=== PATIENT | male | born 1960 | race Caucasian/White ===

== ENCOUNTER → 2018-03-02 18:01 | Outpatient (CLI) | payer OTHER, SELFPAY ==
--- NOTE | 2018-03-02 18:11 | DI.MRI.S_ITS ---
PROCEDURE: MR HAND LT WO CON INDICATIONS: LEFT RING FINGER DEFORMITY TECHNIQUE: Noncontrast coronal T1 spin echo and T2 fast spin echo with fat saturation, axial proton density fast spin echo and T2 fast spin echo with fat saturation, sagittal T1 spin echo and STIR through the hand and fingers. COMPARISON: None. FINDINGS: Image quality: Excellent. Bones: There is slight flexion at the fourth PIP joint. Mild osteoarthritic changes are noted involving the fourth PIP and DIP joints with joint space narrowing and small marginal osteophyte formation. No marrow contusions or fractures. No intra-osseous lesions. Interphalangeal joint(s): The accessory and proper collateral ligaments appear intact. The volar plate demonstrates normal morphology. The extensor central slips appear intact on sagittal images. Metacarpophalangeal joint(s): The accessory and proper collateral ligaments appear intact, as well as the volar plate and adjacent deep transverse metacarpal ligaments. The sagittal bands of the extensor dixon appear normal. Extensor apparatus: The central slips insert normally on the middle phalangeal base. The conjoint and terminal tendons insert normally on the distal phalangeal bases. More proximal portions of the extensor tendons also appear normal. Flexor apparatus: The flexor digitorum superficialis and profundus tendons both appear intact. There is disruption of A2 and possibly A4 pulleys of the fourth digit with increased distance between the flexor tendons and fourth proximal and middle phalanges and surrounding soft tissue edema. Rest of annular and cruciform pulleys appear intact. Soft tissues: Visualized muscles demonstrate normal bulk and internal signal. No intramuscular masses identified. No ganglion cysts. IMPRESSION: 1. Rupture of A2 and possibly A4 pulleys of the fourth digit with surrounding soft tissue edema and fluid deep to the flexor tendon. Increased distance between the flexor tendon of fourth digit and fourth proximal and middle phalanges. No evidence of fourth digit flexor or extensor tendon rupture. 2. No marrow edema. No fracture or dislocation. 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 Dictated by: Wenceslao Mcdowell M.D. on 03/03/2018 at 9:50 Approved by: Wenceslao Mcdowell M.D. on 03/03/2018 at 10:32
== END ==
PROVIDERS: Visit Provider Physician Assistant
DX: S66.195A Other injury of flexor muscle, fascia and tendon of left ring finger at wrist and hand level, initial encounter (principal); M19.042 Primary osteoarthritis, left hand; M20.002 Unspecified deformity of left finger(s); R60.9 Edema, unspecified
CPT/HCPCS: 73218

== ENCOUNTER 2018-12-03 06:35 | Day surgery (SDC) | payer OTHER, SELFPAY ==
[2018-12-03 07:13] VITALS: BP 135/75; PULSE 63; RESP 17; TEMP 36.3; O2SAT 97; BMI 25.7
[2018-12-03] MEDS: SODIUM CHLORIDE 0.9% 1,000 ML 100 ML IV (07:30)
--- NOTE | 2018-12-03 08:37 | PM.HP.1 ---
History of Present Illness Date Patient Seen: 12/03/18 Time Patient Seen: 08:38 Chief complaint: [id number] Narrative: Patient here for screening colonoscopy had a previous scope at 10 years ago with no polyps found he is asymptomatic no melena no hematochezia Patient History Medical History Former smoker (Acute) Impaired vision (Acute) Social History household members: spouse Family & Social History Social History: household members spouse Meds Home Medications Medication Instructions Recorded Confirmed Type No Known Home Medications 12/03/18 12/03/18 History Allergies Allergy/AdvReac Type Severity Reaction Status Date / Time No Known Drug Allergies Allergy Verified 12/03/18 07:11 Review of Systems Review of Systems All systems reviewed & are unremarkable except as noted in HPI and below Exam Vital Signs (past 8 hours): - 12/03/18 07:13 Temperature 97.3 F L Pulse Rate 63 Respiratory Rate 17 Blood Pressure 135/75 Pulse Oximetry 97 Oxygen Delivery Method Room Air Narrative Exam Narrative: Patient is alert and oriented vital signs are stable Lungs are clear with no rales or wheezes Heart regular rhythm no murmur Abdomen no organomegaly no tenderness Rectal to be done at colonoscopy Assessment & Plan Assessment & Plan narrative: Asymptomatic patient here for screening colonoscopy has no history of prior polyps. Understands procedure and has no questions.
[2018-12-03] MEDS: MIDAZOLAM 5 MG/5 ML VIAL IV (08:56)
[2018-12-03] MEDS: fentaNYL 250 MCG/5 ML INJ IV (08:56)
--- NOTE | 2018-12-03 08:58 | PM.OP.ENDO ---
Operative Date/Time/Diagnoses Date of procedure: 12/03/18 Time of procedure: 08:58 Pre-op diagnosis: Screening colonoscopy Post-op diagnosis: same Procedure & Clinicians Study performed: Total colonoscopy to the cecum finding significant sigmoid diverticulosis no diverticulitis possible irregularity at 40 cm that I could not biopsy this may have been a suction abnormality that I could not get beyond a fold in the colon to biopsy it was a flat 5 mm irregularity Same procedure as scheduled: Yes Surgeon: Jake Hollingsworth Procedure Notes SCOAP/Timeout: This was done Procedure in detail: Patient was properly identified during surgical pause flexible fiberoptic colonoscope inserted transanally to the cecum patient has rather significant sigmoid diverticulosis no diverticulitis at 40 cm behind a fold in the mucosa there was a 5 mm area of irregularity but I could not get the biopsy forceps to it and therefore could not biopsy it this just may have been scope trauma or suction irregularity. No true polyps tumors or ulcerations were seen throughout the colon procedure was well tolerated Scope withdrawal time: 10 Sedation minutes: 18 Findings: diverticulosis Impression: Sigmoid diverticulosis possible 5 mm irregularity at 40 cm could not biopsy it Recommendations: Colonscopy in 3 years Disposition: PACU
[2018-12-03 09:02] VITALS: BP 123/78; PULSE 71; RESP 7; TEMP 36.3; O2SAT 92
[2018-12-03 09:07] VITALS: BP 128/78; PULSE 74; RESP 13; O2SAT 99
[2018-12-03 09:12] VITALS: BP 117/82; PULSE 84; RESP 10; O2SAT 96
[2018-12-03 09:20] VITALS: BP 112/73; PULSE 78; RESP 11; TEMP 36.8; O2SAT 98
[2018-12-03 09:30] VITALS: BP 116/63; PULSE 69; RESP 20; TEMP 36; O2SAT 97
== END 2018-12-03 09:38 | disposition home or self-care (01) ==
PROVIDERS: PCP Internal Medicine; Visit Provider Surgery
PROC: 0DJD8ZZ Inspection of Lower Intestinal Tract, Via Natural or Artificial Opening Endoscopic (ICD-10-PCS; CPT 45378; principal; 2018-12-03 07:45)
DX: Z12.11 Encounter for screening for malignant neoplasm of colon (principal); K57.30 Diverticulosis of large intestine without perforation or abscess without bleeding; Z87.891 Personal history of nicotine dependence
CPT/HCPCS: G0121; 99152; J2250; J3010

== ENCOUNTER → 2019-02-14 19:33 | Outpatient (CLI) | payer OTHER, SELFPAY ==
--- NOTE | 2019-02-14 | DI.MRI.S_ITS ---
PROCEDURE: MR SHOULDER RT WO CON INDICATIONS: Pain in right shoulder TECHNIQUE: Noncontrast oblique coronal T2 fast spin echo with fat saturation, oblique sagittal T1 spin echo and T2 fast spin echo with fat saturation, axial T1 spin echo and T2 fast spin echo with fat saturation through the shoulder. COMPARISON: None. FINDINGS: Image quality: Excellent. Rotator cuff: There is tendinosis and low-grade articular and bursal surface partial-thickness tear involving distal supraspinatus and infraspinatus extending to the musculotendinous junction. Distal subscapularis tendinosis and low-grade intrasubstance partial-thickness tear is also seen. Sagittal images demonstrate no significant muscle atrophy. Bones and bursae: No bone marrow contusions or fractures. Mild to moderate acromioclavicular joint and glenohumeral joint osteoarthritis is seen with downward osteophyte formation in the acromioclavicular joint depressing on musculotendinous junction of supraspinatus.. No pathologic subacromial-subdeltoid or subcoracoid bursal fluid is present. Capsule and soft tissues: In the absence of intra-articular contrast, there is signal abnormality and contour irregularity involving superior anterior labrum at 12 to 2:00 position suggestive of superior anterior labral tear. The glenohumeral ligaments appear intact. The long head of the biceps tendon demonstrates normal location and morphology. The rotator interval appears normal, without fibrosis. The coracohumeral ligament is normal in thickness. IMPRESSION: 1. Tendinosis and low-grade articular and bursal surface partial-thickness tear involving distal supraspinatus and infraspinatus extending to musculotendinous junction. Distal subscapularis tendinosis and low-grade intrasubstance partial thickness tear. 2. Mild to moderate acromioclavicular joint and glenohumeral joint osteoarthritis. 3. Suggestion of superior anterior labral tear at 12 to 2:00 position. Dictated by: Wenceslao Mcdowell M.D. on 02/15/2019 at 10:00 Approved by: Wenceslao Mcdowell M.D. on 02/15/2019 at 10:06
== END ==
PROVIDERS: PCP Internal Medicine; Visit Provider Orthopaedic Surgery
DX: M25.511 Pain in right shoulder (principal); M75.111 Incomplete rotator cuff tear or rupture of right shoulder, not specified as traumatic; M19.011 Primary osteoarthritis, right shoulder
CPT/HCPCS: 73221

== ENCOUNTER 2019-03-14 10:37 | Day surgery (SDC) | payer OTHER, SELFPAY ==
[2019-03-09 14:30] VITALS: BMI 27.6
[2019-03-14] VITALS (9 sets, daily range): BP systolic 107–144; BP diastolic 64–88; PULSE 59–78; RESP 9–15; TEMP 36.1–36.9; O2SAT 91–99; BMI 26.0
[2019-03-14] MEDS: LACTATED RINGERS 1,000 ML 42 ML IV ×2 (12:00→14:43)
--- NOTE | 2019-03-14 12:39 | PM.PREOP ---
Pre-operative Note Interval Note History & Physical reviewed/Exam performed by Physician: Yes Changes to H&P: No
--- NOTE | 2019-03-14 13:00 | PM.PREOP ---
Pre-operative Note Interval Note History & Physical reviewed/Exam performed by Physician: Yes Changes to H&P: No
[2019-03-14] MEDS: fentaNYL 100 MCG/2 ML INJ 50 MCG IV (13:42)
[2019-03-14] MEDS: MIDAZOLAM 2 MG/2 ML VIAL IV (13:42)
--- NOTE | 2019-03-14 13:58 | SUR.PREOP ---
Block start time [1342] . Monitoring initiated and maintained throughout procedure. Oxygen and medications given per anesthesiologist instructions. Patient remained stable throughout procedure, no adverse reactions noted. Block end time [1346].
[2019-03-14] MEDS: CEFAZOLIN 2 GM/100 ML FROZ.PIGGY IV (14:10)
--- NOTE | 2019-03-14 14:31 | SUR.OPER ---
Beach chair with Kalinan/Isiah shoulder positioner. Lower body on padded OR bed. Head in foam padded head cradle, secured with straps. Left non-operative arm secured <90 degrees abduction, right arm under control of surgeon. Pillow under knees. Safety belt at thigh. Cloth tape over blanket over lower legs.
[2019-03-14] MEDS: BUPIVACAINE 0.5% W/ EPI (PF) VIAL 30 ML INJ (14:39)
[2019-03-14] MEDS: EPINEPHrine 1 MG/ML AMPUL 2 MG IRR (14:40)
--- NOTE | 2019-03-14 15:18 | P.OP_ITS ---
Operative Date/Time/Diagnoses Date of procedure: 03/14/19 Time of procedure: 14:00 Pre-op diagnosis: Right shoulder impingement and partial rotator cuff tear Post-op diagnosis: same Procedure & Clinicians Procedure: Right shoulder arthroscopic extensive debridement with distal clavicle excision and subacromial decompression Same procedure as scheduled: Yes Indications: Patient with signs subacromial impingement as well as partial tearing to the rotator cuff. Patient was unresponsive to conservative measures. Surgeon: Keyshawn aBrlow Automation Application Engineer: Cara Mckeon Anesthesia Type: General and Peripheral nerve block Operative Notes Findings: Very mild bursal sided partial tearing to the supraspinatus. Less than 25%. No sign of any articular sided partial tears. No sign of any proximal biceps tearing or synovitis. Degenerative fraying to the labrum both anterior superior as well as posteriorly. 2-1/2 mm by 2-1/2 mm area of complete cartilage loss on the humeral head. The surrounding cartilage looked relatively free of any significant wear tear. Glenoid had no sign of any full-thickness cartilage loss. Significant bursitis and synovitis in the subacromial and subdeltoid space. Arthritic changes to the AC joint with inferior osteophytes coming off the distal clavicle. Impingement lesion in the acromial arch. No sign of any loose bodies in the glenohumeral joint. No sign of any significant slap tear or Bankart tear Closure Type: primary Specimen(s): none sent Estimated Blood Loss (mL): 0 Blood products transfused: none Procedure in detail: On date of service, Patient was met in the holding area. The operative site was signed and witnessed by the OR staff. The surgeries once again discussed with the patient and any remaining questions they had were answered fully. Patient was taken back to the operating theater and placed on the operating table in a supine position. Great care was taken to ensure that all bony prominences were properly padded. Patient was then placed into the beach chair position. The head and neck were properly positioned and secured. A timeout was performed verifying patient's name, procedure, and the operative site. The upper extremity was then prepped and draped in the normal sterile fashion. Previously, the bony anatomy and portal sites were marked out as well as injected with Marcaine with epinephrine. An 11 blade was used to make an incision in the posterior aspect of the shoulder. The camera was placed, and a diagnostic shoulder scope was performed. Findings listed above. Next under direct visualization, a anterior portal was made. Shaver was brought in in a extensive debridement of the glenohumeral joint was performed. Shaver was used to debride the degenerative changes to the anterior, superior as well as posterior aspects of the labrum. Patient had a area of full-thickness cartilage loss. This was debrided as well. Shaver was also used to debride the very edges of the cartilage that had already started to pulled away from the bone about ready to be come loose bodies. Once we had extensively debrided the glenohumeral joint we turned our attention to the subacromial space. Next the camera was placed into the subacromial space. A lateral portal was obtained under direct visualization. A combination of the shaver and vapor wand, a debridement of the inflamed tissue as well as inflamed bursa was performed. The lateral gutter was also cleaned out. This gave us good visualization of the bursal aspect of the rotator cuff as well as the acromial arch. There was an obvious impingement lesion in the acromial arch. Next we turned our attention to the subacromial decompression. Next, a mechanical rasp was then used to do a subacromial decompression. This allowed us to convert the acromion to a type I acromial. This also allowed us to shave down the bony lesion in the acromial space. The rasp was placed into the lateral portal as well as the anterior portal in order to do a complete subacromial decompression. We next turned our attention to the distal clavicle. Using the shaver in the vapor wand we were able to clean out all the soft tissue around the distal clavicle as well as into the a.c. joint. This gave us good visualization of the arthritic changes to the distal clavicle as well as good of the a.c. joint allowing us to assess our distal clavicle excision. Of the inferior osteophytes coming off the distal clavicle. Using the mechanical rasp in the anterior portal, we were able to remove the inferior osteophytes as well as do a distal clavicle excision. The camera was then placed into the anterior portal which gave us a direct visualization of the a.c. joint allowing us to assess the distal clavicle excision. We then turned our attention to the rotator cuff tear. There was mild signs of bursal sided tears. The shoulder was then taken through range of motion and there was no sign of any additional impingement. Patient's shoulder was then cleaned dried and dressed and patient was taken to the PACU in stable condition. Complications: none Post-operative Condition: stable Disposition: PACU Plan for aftercare: Sling will be for comfort. No restrictions to range of motion. The
--- NOTE | 2019-03-14 16:48 | PM.PNPO.1 ---
Subjective Subjective Date Patient Seen: 03/14/19 Time Patient Seen: 16:49 Interval history: Pt is s/p a shoulder arthroscopy. He is doing well and meets discharge criteria except for O2 sats in the low 90's without supplemental O2. He has not had any further narcotic in the PACU. Only 150 ug fentanyl intraop. The bulk of his pain control is from an interscalene block. He has no dyspnea. He is awake and talking. I do not suspect a Pnuemothorax. I believe he can be safely discharged home. Exam Vital Signs (past 8 hours): - 03/14/19 11:21 03/14/19 15:24 03/14/19 15:30 Temperature 98.4 F 98.0 F Pulse Rate 74 78 71 Respiratory Rate 15 14 12 Blood Pressure 144/88 H 119/85 136/81 Pulse Oximetry 99 92 91 03/14/19 15:37 03/14/19 15:49 03/14/19 15:55 Temperature Pulse Rate 71 68 Respiratory Rate 10 L 15 12 Blood Pressure 129/83 121/81 Pulse Oximetry 92 96 96 03/14/19 15:59 03/14/19 16:08 03/14/19 16:30 Temperature 97.0 F L Pulse Rate 59 L 70 65 Respiratory Rate 9 L 12 13 Blood Pressure 122/83 116/74 107/64 Pulse Oximetry 96 93 94 Oxygen Delivery Method Nasal Cannula Oxygen Flow Rate 3 Assessment & Plan Post-op Postoperative Procedures: Procedures Operation Date: 03/14/19 12:45 Actual Procedures Side Surgeon p Arthroscopic subacromial decompression w/ rotator cuff debridement Right Keyshawn Barlow MD
--- NOTE | 2019-03-14 16:58 | SUR.PHASEII ---
New orders received and written, ok to d/c pt to home with sats [id number]. Pt verbalizes no SOB. All other VS stable. Pt walked from bedside to [facility] w/o issue. D/C to ED entrance by Kylah via [facility]
== END 2019-03-14 16:57 | disposition home or self-care (01) ==
PROVIDERS: PCP Internal Medicine; Visit Provider Orthopaedic Surgery
PROC: (CPT 29827; principal; 2019-03-14 12:45)
DX: M75.41 Impingement syndrome of right shoulder (principal); M19.011 Primary osteoarthritis, right shoulder; G89.18 Other acute postprocedural pain; S46.011A Strain of muscle(s) and tendon(s) of the rotator cuff of right shoulder, initial encounter; V49.60XA Unspecified car occupant injured in collision with unspecified motor vehicles in traffic accident, initial encounter
CPT/HCPCS: 29823; 29826; 29824; 64415; J0171; J0690; J1100; J2250; J2405; J2704; J3010

== ENCOUNTER → 2020-05-11 15:36 | Outpatient (CLI) | payer OTHER, SELFPAY ==
--- NOTE | 2020-05-11 | DI.MRI.S_ITS ---
PROCEDURE: MR LUMBAR SPINE WO CON INDICATIONS: Radiculopathy, lumbar region TECHNIQUE: Noncontrast sagittal T1 spin echo and T2 fast echo, sagittal STIR, axial T1 and T2 fast spin echo through the lumbar spine. In cases with scoliosis, additional coronal T2 fast spin echo may be performed. COMPARISON: [facility], MR, MR LUMBAR SPINE WITHOUT CONTRAST, 05/12/2017, 18:13. [facility], CR, XR LUMBAR SPINE 2 OR 3 VIEWS, 06/29/2019, 15:47. FINDINGS: Image quality: Excellent. Alignment and Curvature: There is trace anterolisthesis of L5 on S1, unchanged. Bone Marrow: Marrow is of normal overall signal. No acute vertebral body compression fractures. Spinal Cord: Conus medullaris terminates at the L1 level. Visualized cord demonstrates normal signal and size. Paraspinous Soft Tissues: No paravertebral masses. Discs: Moderate desiccation is present at L5-S1. L1-L2: Minimal disc bulge without spinal stenosis or foraminal narrowing. No interval change. L2-L3: Mild disc bulge with [id number] spinal stenosis. Mild bilateral foraminal narrowing with facet and ligamentum flavum hypertrophy. No interval change. L3-L4: Mild disc bulge with mild spinal stenosis. Mild bilateral foraminal narrowing with facet and ligamentum flavum hypertrophy. No interval change. L4-L5: Mild disc bulge with slight indentation of the anterior thecal sac, new compared to prior exam. Mild bilateral foraminal narrowing with facet and ligamentum flavum hypertrophy. No interval change. L5-S1: Mild disc bulge without spinal stenosis. There is severe left and mild right foraminal narrowing with facet and ligamentum flavum hypertrophy. There is flattened deformity the exiting left L5 nerve root, unchanged. Isthmic spondylolisthesis is present at this level. IMPRESSION: 1. Stable interval exam demonstrating multilevel degenerative changes. 2. Unchanged appearance of grade 1 L5-S1 isthmic spondylolisthesis. 3. Persistent appearance of flat deformity of the exiting L5 nerve root at L5-S1 secondary to prominent foraminal narrowing. Dictated by: Carrie Hubbard M.D. on 05/11/2020 at 16:46 Approved by: Carrie Hubbard M.D. on 05/11/2020 at 16:51
== END ==
PROVIDERS: PCP Internal Medicine; Referring Provider Internal Medicine; Visit Provider Internal Medicine
DX: M47.26 Other spondylosis with radiculopathy, lumbar region (principal); M43.17 Spondylolisthesis, lumbosacral region
CPT/HCPCS: 72148

== ENCOUNTER 2021-07-15 19:52 | Emergency (ER) | payer OTHER, SELFPAY ==
[2021-07-15 20:01] VITALS: BP 149/72; PULSE 93; RESP 16; TEMP 37; O2SAT 96; BMI 26.6
[2021-07-15] MEDS: TET,DIPH,PERTUSS(ACELL),VAC/PF 0.5 ML SYRINGE IM (20:18)
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
== END 2021-07-15 20:47 | disposition home or self-care (01) ==
PROVIDERS: Emergency Provider Emergency Medicine; PCP Internal Medicine
DX: S61.216A Laceration without foreign body of right little finger without damage to nail, initial encounter (principal); W26.8XXA Contact with other sharp object(s), not elsewhere classified, initial encounter; Z23 Encounter for immunization
CPT/HCPCS: 12001; 90471; 99283; 90715

== ENCOUNTER → 2023-03-07 08:29 | Outpatient (CLI) | payer OTHER, SELFPAY ==
[2023-03-07 09:39] LABS: Hemoglobin A1C% w Est Avg Glu 5.6 % (4.0-6.0)
[2023-03-07 09:50] LABS: Alanine Aminotransferase 57 IU/L (<50); Albumin 4.3 g/dL (3.5-5.0); Albumin Globulin Ratio 1.7 (1.0-2.8); Alkaline Phosphatase 70 U/L (38-126); Aspartate Aminotransferase 32 IU/L (17-59); BUN Creatinine Ratio 21.7 (6-22); Bilirubin Total 1.2 mg/dL (0.2-1.3); Blood Urea Nitrogen 26 mg/dL (9-20); Calcium 9.6 mg/dL (8.4-10.2); Carbon Dioxide 27 mmol/L (22-32); Chloride 103 mmol/L (98-107); Cholesterol 156 mg/dL (140-199); Estimated Glomerular Filt Rate > 60 mL/min (>60); Globulin 2.5 g/dL (1.7-4.1); Glucose 109 mg/dL (80-110); HDL Cholesterol 29 mg/dL (40-60); HEMOLYSIS < 15 (0-50); LDL Cholesterol Calculated 86 mg/dL (<100); Potassium 4.7 mmol/L (3.4-5.1); Sodium 138 mmol/L (137-145); Total Protein 6.8 g/dL (6.3-8.2); Triglycerides 205 mg/dL (35-150)
[2023-03-07 10:16] LABS: Prostate Specific Antigen Scrn 1.65 ng/mL (0.1-4.0)
== END ==
PROVIDERS: PCP Family Medicine; Referring Provider Family Medicine; Visit Provider Family Medicine
DX: Z00.00 Encounter for general adult medical examination without abnormal findings (principal); K21.9 Gastro-esophageal reflux disease without esophagitis; I10 Essential (primary) hypertension; E78.5 Hyperlipidemia, unspecified; Z12.5 Encounter for screening for malignant neoplasm of prostate
CPT/HCPCS: 36415; 80053; 80061; 83036; G0103

== ENCOUNTER → 2023-04-22 06:36 | Outpatient (CLI) | payer OTHER, SELFPAY ==
--- NOTE | 2023-04-22 06:37 | DI.ECHO.S_ITS ---
[facility] +---------+ : : [address] : : : : [id number] : : : : Phone: [phone]+ Echocardiogram Report + + :Name: CHANG HER Study Date: 04/22/2023 Height: 67 in : :[facility] ReadingLocation: Weight: 170 lb : : Gender: Male BSA: 1.9 m2 : :: 1960 Age: 62 yrs BP: 146/87 mmHg: :Reason For Study: MURMUR : :Ordering Physician: ILDEFONSO MARIONPerformed By: Miriam Hernandez : :Referring: ILDEFONSO MARION : + + Interpretation Summary The ejection fraction is estimated to be 60-65%. Diastolic parameters suggest probable normal left ventricular diastolic function and normal filling pressures. The right ventricle is normal in size and function. No significant valvular abnormalities. Pulmonary artery pressures cannot be estimated because of the lack of a measurable TR jet velocity but the IVC suggests a CVP of around 3 mmHg. Procedure: A two-dimensional transthoracic echocardiogram with color flow and Doppler was performed. The study quality was technically adequate. There is no prior echocardiogram noted for this patient. The patient was in sinus rhythm with heart rates between 68-85 bpm during the exam. Left Ventricle: The left ventricle is normal in size and wall thickness. The ejection fraction is estimated to be 60-65%. Diastolic parameters suggest probable normal left ventricular diastolic function and normal filling pressures. Right Ventricle: The right ventricle is normal in size and function. Atria: The left atrial size is normal. Right atrial size is normal. There is no Doppler evidence for an interatrial shunt. Mitral Valve: The mitral valve is normal in structure and function. There is trace mitral regurgitation. Aortic Valve: The aortic valve is trileaflet. The aortic valve opens well. There is no aortic valve stenosis. No aortic regurgitation is present. Tricuspid Valve: The tricuspid valve is normal in structure and function. There is trace tricuspid regurgitation. Pulmonary artery pressures cannot be estimated because of the lack of a measurable TR jet velocity but the IVC suggests a CVP of around 3 mmHg. Pulmonic Valve: The pulmonic valve leaflets are thin and pliable; valve motion is normal. There is mild pulmonic regurgitation. Great Vessels: The aortic root is normal size. The dimensions of the ascending aorta are normal. The IVC is of normal diameter and collapses greater than 50% with a sniff. This suggests a low right atrial pressure of 3 mm Hg. Pericardium/ Pleura There is no pericardial effusion. There is no pleural effusion. MMode/2D Measurements & Calculations LVIDd: 4.1 cm LVOT diam: 1.8 cm LVIDs: 2.7 cm Ao root diam: 2.9 cm FS: 34.6 % asc Aorta Diam: 2.9 cm EPSS: 0.86 cm Ao Arch Diam (Prox Trans): 3.0 cm IVSd: 0.85 cm LVPWd: 0.78 cm LV galeana. diameter/BSA (cm/m^2): 2.2 LV sys. diameter/BSA (cm/m^2): 1.4 LA A2 area: 14.5 cm2 RA long axis: 4.7 cm LA A4 area: 12.2 cm2 RA area: 9.4 cm2 LA length (vol): 5.0 cm RA vol: 16.0 ml LA vol: 29.8 ml RA : 8.5 ml/m2 LA vol index: 15.8 ml/m2 IVC diam: 2.0 cm RVD1 (basal): 3.4 cm RVD2 (mid): 2.9 cm TAPSE: 2.1 cm Doppler Measurements & Calculations Ao V2 max: 133.4 cm/sec LVOT Max Maged: 96.4 cm/sec Ao V2 mean: 94.6 cm/sec LV V1 max P.7 mmHg Ao max P.1 mmHg LV V1 VTI: 19.2 cm Ao mean P.0 mmHg JENNIFER(I,D): 1.7 cm2 Ao V2 VTI: 27.0 cm JENNIFER(V,D): 1.8 cm2 sev ratio: 0.71 JENNIFER indexed to BSA (cm^2/m^2): 0.92 MV E max maged: 55.7 cm/sec PA V2 max: 146.9 cm/sec MV A max maged: 65.1 cm/sec PA V2 mean: 97.2 cm/sec MV E/A: 0.85 PA mean P.4 mmHg Med Peak E' Maged: 7.8 cm/sec PA pr(Accel): 36.2 mmHg E/E' med: 7.1 Lat Peak E' Maged: 10.6 cm/sec E/E' lat: 5.2 E/e' average: 6.2 MV dec time: 0.23 sec [facility] 46.7 ml Reading Physician:08:47 AM
== END ==
LOC: ECHO 06:36
PROVIDERS: PCP Family Medicine; Referring Provider Family Medicine; Visit Provider Family Medicine
DX: R01.1 Cardiac murmur, unspecified (principal); I10 Essential (primary) hypertension; I37.1 Nonrheumatic pulmonary valve insufficiency
CPT/HCPCS: 93306

== ENCOUNTER 2023-07-14 07:56 | Day surgery (SDC) | payer OTHER, SELFPAY ==
--- NOTE | 2023-07-14 | PATH_ITS ---
[facility] Accession Number: [id number] No. of containers..01 Tissue . 01 Material submitted: . colon - ASCENDING COLON POLYP . 01 Diagnosis: ASCENDING COLON POLYP: Tubular adenoma. STO 07/17/20231717 Local . 01 Electronically signed: . Oj Bundy MD, Pathologist NPI- [id number] . 01 Gross description: . ASCENDING COLON POLYP: Received in formalin is 1 fragment(s) of atkins, soft tissue measuring 0.7 x 0.2 x 0.2 cm submitted entirely in 1 cassette(s) /EJ 07/17/20231717 Local . 01 Pathologist provided ICD-10: D12.2 . 01 CPT . 606831 Specimen Comment: A courtesy copy of this report has been sent to [phone] Performed at: 01 [facility] [address] [place] [id number] MD Oj Bundy MD Phone: [phone]
[2023-07-14] MEDS: LACTATED RINGERS 1,000 ML 42 ML IV (08:18)
[2023-07-14 08:26] VITALS: BP 119/79; PULSE 76; RESP 21; TEMP 36.3; O2SAT 97
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
[2023-07-14 09:44] VITALS: BP 132/90; PULSE 92; RESP 20; TEMP 36.9; O2SAT 95
--- NOTE | 2023-07-14 09:44 | P.OP.COLON_ITS ---
Operative Date/Time/Diagnoses Date of procedure: 07/14/23 Time of procedure: 09:44 Pre-op diagnosis: Colorectal screening Procedure & Clinicians Study performed: Colonoscopy and polypectomy Same procedure as scheduled: Yes Indications: Colorectal screening Surgeon: Usman Johnson Procedure Notes Procedure in detail: The history and physical was performed/updated and the patient is ASA class is 2. The procedure was discussed in detail with the patient. Potential risks complications including infection, bleeding, missed diagnosis, perforation, need for surgery, and were explained. Their questions were answered and informed consent was obtained. Patient was brought to the procedure room and placed standard monitoring equipment. The patient's vital signs were monitored continuously throughout the entire procedure. Prior to starting time-out was performed. The patient was placed in the left lateral recumbent position. Procedural sedation was administered by anesthesia. Examination began with a thorough inspection of the perianal area there was no evidence of fissures, fistulae, external hemorrhoids or cutaneous malignancy. The colonoscopy scope was then placed into the anal canal and was advanced to the cecum, which was identified by the ileocecal valve, the appendiceal orifice and the confluence of the taenia. The scope was then slowly withdrawn examining colon thoroughly in all directions, irrigating it of any residual stool. The scope was retroflexed within the rectum The patient tolerated the procedure well. They will be discharged once criteria are met. The prep was of good/excellent quality. The withdrawl time was 6 min utes. FINDINGS * Ascending colon 5 mm polyp removed with biopsy forceps * Mild diverticulosis of descending colon Specimen(s): other (Ascending colon polyps) Impression: Colonic polyp x1 Post-procedure Recommendations: High fiber diet Plan for aftercare: Follow up dependent on pathology findings likely 5 years Disposition: same day surgery
[2023-07-14 09:51] VITALS: BP 118/81; PULSE 75; RESP 18; TEMP 36.9; O2SAT 95
== END 2023-07-14 10:15 | disposition home or self-care (01) ==
PROVIDERS: PCP Family Medicine; Referring Provider Surgery; Visit Provider Surgery
PROC: 0DJD8ZZ Inspection of Lower Intestinal Tract, Via Natural or Artificial Opening Endoscopic (ICD-10-PCS; CPT 45378; principal; 2023-07-14 09:15)
DX: Z12.11 Encounter for screening for malignant neoplasm of colon (principal); K57.30 Diverticulosis of large intestine without perforation or abscess without bleeding; D12.2 Benign neoplasm of ascending colon
CPT/HCPCS: 45380; J2704

== ENCOUNTER → 2024-03-23 11:59 | Outpatient (CLI) | payer MEDICARE, OTHER, SELFPAY ==
[2024-03-23 13:26] LABS: Alanine Aminotransferase 59 IU/L (<50); Albumin 4.4 g/dL (3.5-5.0); Albumin Globulin Ratio 1.9 (1.0-2.8); Alkaline Phosphatase 84 U/L (38-126); Aspartate Aminotransferase 36 IU/L (17-59); BUN Creatinine Ratio 17.2 (6-22); Bilirubin Total 0.6 mg/dL (0.2-1.3); Blood Urea Nitrogen 21 mg/dL (9-20); Calcium 9.3 mg/dL (8.4-10.2); Carbon Dioxide 25 mmol/L (22-32); Chloride 107 mmol/L (98-107); Cholesterol 148 mg/dL (140-199); Estimated Glomerular Filt Rate > 60 mL/min (>60); Globulin 2.3 g/dL (1.7-4.1); Glucose 95 mg/dL (80-110); HDL Cholesterol 28 mg/dL (40-60); HEMOLYSIS < 15 (0-50); LDL Cholesterol Calculated 43 mg/dL (<100); Potassium 4.2 mmol/L (3.4-5.1); Sodium 140 mmol/L (137-145); Total Protein 6.7 g/dL (6.3-8.2); Triglycerides 386 mg/dL (35-150)
[2024-03-23 13:54] LABS: Prostate Specific Antigen Scrn 2.03 ng/mL (0.1-4.0)
[2024-03-24 15:57] LABS: HIV 1 & 2 Ab/Ag 4th Gen Combo NEGATIVE (NEGATIVE); Hep C Virus Ab w/Reflex Quant NEGATIVE s/c (NEGATIVE)
== END ==
PROVIDERS: PCP Family Medicine; Referring Provider Family Medicine; Visit Provider Family Medicine
DX: Z00.00 Encounter for general adult medical examination without abnormal findings (principal); E78.5 Hyperlipidemia, unspecified; Z12.5 Encounter for screening for malignant neoplasm of prostate; I10 Essential (primary) hypertension; Z11.4 Encounter for screening for human immunodeficiency virus [HIV]; Z11.59 Encounter for screening for other viral diseases; R01.1 Cardiac murmur, unspecified
CPT/HCPCS: 36415; 80053; 80061; 86803; 87389; G0103

== ENCOUNTER → 2024-03-31 07:36 | Outpatient (CLI) | payer MEDICARE, OTHER, SELFPAY ==
--- NOTE | 2024-03-31 07:38 | DI.US.S_ITS ---
PROCEDURE: US ABD AORTA ANEURYSM SCREEN INDICATIONS: former smoker TECHNIQUE: Real time scanning was performed of the aorta and iliac arteries, with image documentation. COMPARISON: None. FINDINGS: Aorta: Proximal aortic diameter measures 2.2 x 2.1 cm. Mid-aorta measures 1.7 x 2.0 cm. Distal aortic diameter is 1.4 x 1.7 cm. Iliac arteries: Right common iliac artery measures 0.8 cm. Left common iliac artery measures 0.8 cm. IMPRESSION: No aneurysm found, [id number] calcific plaquing. Incidental note made of gallbladder sludge. Dictated by: Damien Huerta M.D. on 03/31/2024 at 9:19 Approved by: Damien Huerta M.D. on 03/31/2024 at 9:20
--- NOTE | 2024-03-31 07:38 | DI.CT.S_ITS ---
PROCEDURE: CT LUNG LOW DOSE SCREENING INDICATIONS: former smoker TECHNIQUE: Noncontrast 2.0-2.5 mm thick sections acquired from the pulmonary apices to the posterior costophrenic angles. 7 mm thick axial MIP, and 5 mm coronal and sagittal reformats were then acquired. For radiation dose reduction, the following was used: automated exposure control, adjustment of mA and/or kV according to patient size. COMPARISON: None. FINDINGS: Image quality: Diagnostic. Lower Neck: No enlarged lymph nodes. Thyroid: No thyroid nodules which require sonographic follow up, per consensus guidelines. Axillae: No enlarged lymph nodes. Chest Wall: Unremarkable. Bones: Unremarkable. Lungs and Pleura: No pneumothorax or pleural effusions. Left lower lobe nodule measuring 6 x 3 millimeters (3/131). Additional scattered micro nodules are present. Heart: Heart size is normal. Mild coronary artery calcifications. No pericardial effusion. Thoracic Vessels: The aorta and pulmonary arteries demonstrate normal size. Atherosclerotic vascular calcifications. Mediastinum and Anny: No enlarged lymph nodes. Esophagus: No wall thickening. No hiatal hernia. Upper Abdomen: Mild hepatic steatosis. IMPRESSION: Left lower lobe pulmonary nodule measuring 6 x 3 millimeters. Additional scattered micro nodules are present. LUNG-RADS 3, probably benign; recommend 6 month follow-up CT chest. Dictated by: Darryl Hay M.D. on 03/31/2024 at 16:27 Approved by: Darryl Hay M.D. on 03/31/2024 at 16:31
== END ==
PROVIDERS: PCP Family Medicine; Referring Provider Family Medicine; Visit Provider Family Medicine
DX: Z87.891 Personal history of nicotine dependence (principal); Z13.6 Encounter for screening for cardiovascular disorders; Z12.2 Encounter for screening for malignant neoplasm of respiratory organs; R91.8 Other nonspecific abnormal finding of lung field; I25.10 Atherosclerotic heart disease of native coronary artery without angina pectoris; K82.8 Other specified diseases of gallbladder; K76.0 Fatty (change of) liver, not elsewhere classified
CPT/HCPCS: 71271; 76706

== ENCOUNTER → 2024-09-25 09:45 | Outpatient (CLI) | payer MEDICARE, OTHER, SELFPAY ==
--- NOTE | 2024-09-25 09:47 | DI.CT.S_ITS ---
PROCEDURE: CT CHEST WO CON INDICATIONS: Lt lung nodule, f/u TECHNIQUE: Noncontrast 5 mm thick sections acquired from the pulmonary apices to the posterior costophrenic angles. 1 mm lung window, 5 mm thick coronal and sagittal and 7 mm axial MIP reformats were then acquired. For radiation dose reduction, the following was used: automated exposure control, adjustment of mA and/or kV according to patient size. COMPARISON: [facility], CT, CT LUNG LOW DOSE SCREENING, 03/31/2024, 7:39. FINDINGS: Image quality: Diagnostic. Lower Neck: No enlarged lymph nodes. Thyroid: No thyroid nodules which require sonographic follow up, per consensus guidelines. Axillae: No enlarged lymph nodes. Chest Wall: Unremarkable. Bones: Unremarkable. Lungs and Pleura: No pneumothorax or pleural effusions. Stable appearance of the 6 mm solid nodule in the left lower lobe. This is in close proximity to the major fissure and has a somewhat elongated configuration. No new focal lesion seen. Heart: Heart size is normal. No pericardial effusion. Thoracic Vessels: The aorta and pulmonary arteries demonstrate normal size. Mediastinum and Anny: No enlarged lymph nodes. Esophagus: No wall thickening. No hiatal hernia. Upper Abdomen: Visualized upper abdomen solid organs and bowel loops appear normal. IMPRESSION: 1. Stable 6 mm left lower lobe lung nodule, most likely benign, probably intrapulmonary lymph node. 2. No new focal lesion seen. Final follow-up CT may be obtained in 1 year. Dictated by: George Chinchilla M.D. on 09/25/2024 at 13:17 Approved by: George Chinchilla M.D. on 09/25/2024 at 13:23
== END ==
PROVIDERS: PCP Family Medicine; Referring Provider Family Medicine; Visit Provider Family Medicine
DX: R91.1 Solitary pulmonary nodule (principal)
CPT/HCPCS: 71250

== ENCOUNTER → 2025-04-01 11:32 | Outpatient (CLI) | payer MEDICARE, OTHER, SELFPAY ==
[2025-04-01 13:42] LABS: Alanine Aminotransferase 72 IU/L (<50); Albumin 4.4 g/dL (3.5-5.0); Albumin Globulin Ratio 1.9 (1.0-2.8); Alkaline Phosphatase 75 U/L (38-126); Blood Urea Nitrogen 24 mg/dL (9-20); Calcium 9.3 mg/dL (8.4-10.2); Carbon Dioxide 24 mmol/L (22-32); Chloride 104 mmol/L (98-107); Cholesterol 141 mg/dL (140-199); Estimated Glomerular Filt Rate > 60 mL/min (>60); Globulin 2.3 g/dL (1.7-4.1); Glucose 130 mg/dL (70-99); HDL Cholesterol 30 mg/dL (40-60); HEMOLYSIS < 15 (0-50); Potassium 4.3 mmol/L (3.4-5.1); Sodium 138 mmol/L (137-145); Total Protein 6.7 g/dL (6.3-8.2); Triglycerides 217 mg/dL (35-150)
== END ==
PROVIDERS: PCP Family Medicine; Referring Provider Family Medicine; Visit Provider Family Medicine
DX: Z00.00 Encounter for general adult medical examination without abnormal findings (principal); Z12.5 Encounter for screening for malignant neoplasm of prostate; E78.5 Hyperlipidemia, unspecified; I10 Essential (primary) hypertension
CPT/HCPCS: 36415; 80053; 80061; G0103